=== PATIENT | female | born 1980 | race Caucasian/White ===

== ENCOUNTER → 2016-06-15 | Outpatient (CLI) | payer OTHER | END | disposition home or self-care (01) | LOC: LAB 14:40 | PROVIDERS: ATTEND Physician Assistant | DX: Z20.9 Contact with and (suspected) exposure to unspecified communicable disease (principal) | CPT/HCPCS: 86765 ==

== ENCOUNTER → 2017-01-11 | Outpatient (CLI) | payer OTHER | END | disposition home or self-care (01) | LOC: LAB 11:21 | PROVIDERS: ATTEND Registered Nurse General Practice | DX: Z20.9 Contact with and (suspected) exposure to unspecified communicable disease (principal) | CPT/HCPCS: 36415; 86706 ==